=== PATIENT | female | born 1965 | race Caucasian/White ===

== ENCOUNTER → 2020-05-09 | Outpatient (CLI) | payer OTHER ==
[~2020-05-09] VITALS: Ht 160 cm; Wt 59.4 kg
[~2020-05-09] MED LIST: ABILIFY 5 MG TAB5 M1 PO; ACYCLOVIR 400400 MG PO; AMITRIPTYLINE H25 M2 PO; BACTRIM DS TAB1 EAC1 PO; BENADRYL25 MG PO; BENICAR20 MG PO; BUPROPION; BUSPIRONE HCL10 MG PO; CALCIUM500 MG PO; CARAFATE 1 GM TA1 G1 PO; DULERA 200 MCG/13 GM INH; FLEXERIL PO; FLONASE 0.05%50 MCG NASAL; GLUTOSE GEL 1515 G1 PO; HYDROCHLOROTH12.5 M1 PO; HYDROXYZINE HCL25 M1 PO; HYDROXYZINE HCL25 M2 PO; IPRATROPIUM BRO30 ML INH; KEFLEX500 M1 PO; KEFLEX500 M2 PO; LASIX 20 MG TAB20 MG PO; LEXAPRO20 MG PO; LIORESAL 10 MG10 MG PO; LORAZEPAM 0.50.5 MG PO; LOSARTAN; MAGNESIUM400 MG PO; NEURONTIN300 MG PO; NEURONTIN600 MG PO; NEXIUM40 MG PO; NOXIFOL-D32500 UNIT PO; OLMESARTAN MEDO20 MG PO; ONDANSETRON HCL4 M2 PO; PERCOCET 5-3251 EACH PO; PERCOCET 7.5-31 EACH PO; POTASSIUM20 PO; PREDNISONE 10 M10 M1 PO; PROAIR HFA8.5 GM PO; QVAR REDIHALE10.6 G1 INH; REQUIP XL2 MG PO; SENNA PLUS TAB1 EACH PO; SINGULAIR 10 MG10 M1 PO; SPIRIVA18 MCG INH; TRAMADOL 50 MG50 MG PO; TRAZODONE HCL50 MG PO; VENLAFAXIN75 MG/1 T2 PO; VISTARIL 25 MG25 M1 PO; VITAMIN B12-FO1 EAC1 PO; VOLTAREN GEL 1100 G2 TOP; WELLBUTRIN 75 M75 M1 PO; ZANTAC 150MG T150 MG PO; ZINC PO; [UNRECOGNIZED DRUG - OTHER] IV
[2020-05-09 10:55] VITALS: BP 114/76
--- NOTE | 2020-05-09 12:03 | NUR ---
Pain Clinic Assessment: 1. History of Osteoarthritis: STATES ARTHRITIS FIBROMYALGIA NICHOLE KNEES History of Rheumatoid Arthritis: Not Applicable 2. Height: 5 ft. 3 in. 160.0 cm. Weight: 131.0 lb. oz. 59.421 kg. Patient's BMI: 23.2 3. Vital Signs: BP: 114/76 Pulse: 86 Resp: 16 Temp: 02 Sat: 98 ECG Mon: 4. Pain Intensity: 9 5. Fall Risk: Dizziness: Y Needs help standing or walking: Y Fallen in the last 3 months: Y Fall risk comments: 6. Patient on Blood Thinner: None 7. History of Hypertension: Y 8. Opioid Therapy greater than 6 weeks: Opiate Contract Signed: 9. Risk Assessment Tool Provided: 1-LOW RISK 10. Functional Assessment Tool: 64/70 11. Recreational Drug Use: Never Drug Type: Tobacco Use: Never Smoker Tobacco Type: Amount or Packs/day: How Many Years: Alcohol Use: Yes Frequency: Special Occasions Quant: 4-5 DRINKS/YEAR
== END ==
LOC: PAIN 06:40
PROVIDERS: ATTEND Anesthesiology Pain Medicine
DX: G89.4 Chronic pain syndrome (principal); Z79.891 Long term (current) use of opiate analgesic